=== PATIENT | female | born 1945 | race Caucasian/White ===

== ENCOUNTER 2022-03-01 15:06 | Emergency (ER) | payer MEDICARE ==
[~2022-03-01] VITALS: Ht 157.5 cm; Wt 91.2 kg
--- NOTE | 2022-03-01 15:36 | NUR ---
NICK SENT BY PMD HERE FOR PSYCH ISSUE. PT'S BEEN SCREAMING IN WR & BEDSIDE. -SI/HI.
[2022-03-01] MEDS ORDERED: OLANZAPINE 10 MG VIAL IM ONE (16:01)
--- NOTE | 2022-03-01 16:01 | NUR ---
URINE COLLECTED AND SENT
[2022-03-01] MEDS ORDERED: VENL75CA62 PO (16:04)
[2022-03-01] MEDS ORDERED: BUPR-319 PO (16:04)
[2022-03-01] MEDS: OLANZAPINE 10 MG VIAL IM ONE ×2 (16:16→16:17)
[2022-03-01 16:17] LABS: BASOPHILS # (AUTO) 0.1 K/uL (0.0-0.2); BASOPHILS % (AUTO) 0.6 % (0.0-2.0); EOSINOPHILS % (AUTO) 2.5 % (0.0-6.0); HEMATOCRIT 45 % (33-45); HEMOGLOBIN 14.7 g/dL (11.5-14.8); LYMPHOCYTES # (AUTO) 1.2 K/uL (0.8-4.8); LYMPHOCYTES % (AUTO) 13.9 % (20.0-44.0); MEAN CORPUSCULAR HGB CONC 33 g/dl (31.0-36.0); MEAN CORPUSCULAR VOLUME 88 fL (82-100); MONOCYTES # (AUTO) 0.8 K/uL (0.1-1.30); MONOCYTES % (AUTO) 9.4 % (2.0-12.0); NEUTROPHILS # (AUTO) 6.2 K/uL (1.8-8.9); NEUTROPHILS % (AUTO) 73.6 % (43.0-81.0); PLATELET COUNT (AUTO) 181 K/uL (150-450); RED BLOOD CELL COUNT(AUTO) 5.04 MIL/uL (4.0-5.2); WHITE BLOOD COUNT (AUTO) 8.4 K/uL (4.3-11.0)
[2022-03-01 16:32] LABS: BILIRUBIN,URINE NEGATIVE (NEGATIVE); COLOR,URINE YELLOW (YELLOW); LEUKOCYTE ESTERASE ,URINE NEGATIVE (NEGATIVE); NITRITE, URINE NEGATIVE (NEGATIVE); PH,URINE 6.5 (5.0-8.0); PROTEIN,URINE NEGATIVE (NEGATIVE); UGLUCOSE NEGATIVE (NEGATIVE); UROBILINOGEN,URINE 0.2 EU/dL (0.2)
--- NOTE | 2022-03-01 17:36 | NUR ---
CALLED [facility]. WAS NOTIFIED OF PT STATUS ETA 1899
[2022-03-01 17:55] LABS: ALANINE AMINOTRANSFERASE 38 U/L (12-78); ALBUMIN 4.1 g/dL (3.4-5.0); ALCOHOL, BLOOD < 3 mg/dL (0-0); ALKALINE PHOSPHATASE 151 U/L (46-116); ASPARTATE AMINOTRANSFERASE 13 U/L (15-37); BILIRUBIN,DIRECT 0.1 mg/dL (0.0-0.2); BILIRUBIN,TOTAL 0.3 mg/dL (0.2-1.0); CALCIUM, SERUM 9.5 mg/dL (8.5-10.1); CARBON DIOXIDE 25 mmol/L (21-32); CHLORIDE 102 mmol/L (98-107); GLUCOSE 106 mg/dL (74-106); POTASSIUM 3.9 mmol/L (3.5-5.1); SODIUM SERUM 139 mmol/L (136-145); TOTAL PROTEIN, SERUM 7.2 g/dL (6.4-8.2); UREA NITROGEN, BLOOD 14 mg/dL (7-18)
[2022-03-01] MEDS ORDERED: diphenhydrAMINE HCL 50 MG/ML VIAL ONE (18:18)
[2022-03-01] MEDS ORDERED: HALOPERIDOL LACTATE INJ 5 MG/ML VIAL ONE (18:18)
[2022-03-01] MEDS ORDERED: LORAZEPAM INJ 2 MG/ML VIAL ONE (18:19)
[2022-03-01] MEDS: LORAZEPAM INJ 2 MG/ML VIAL IM ONE (18:22)
[2022-03-01] MEDS: diphenhydrAMINE HCL 50 MG/ML VIAL IM ONE (18:24)
[2022-03-01] MEDS: HALOPERIDOL LACTATE INJ 5 MG/ML VIAL IM ONE (18:24)
--- NOTE | 2022-03-01 18:52 | NUR ---
ROOM 218-A AFTER PT HAS BEEN EVALUATED BY PSYCH CLINICIAN
--- NOTE | 2022-03-01 19:37 | NUR ---
PT RETURNED TO ER BED [address]
--- NOTE | 2022-03-01 20:13 | NUR ---
PT SLEEPING IN BED, IN NO ACUTE DISTRESS AT THIS TIME. VSS
--- NOTE | 2022-03-01 20:26 | NUR ---
ASSIGNED TO 325-1. AWAITING MED CLEARANCE
--- NOTE | 2022-03-01 20:47 | NUR ---
[facility] SWAB COLLECTED AND SENT TO LAB. PATIENT'S BELONGINGS LIST DONE.
[2022-03-01 21:11] LABS: ACETAMINOPHEN < 2 ug/ml (10-30)
--- NOTE | 2022-03-01 21:39 | NUR ---
Patient discharged to home in stable condition. Written and verbal after care instructions given. Patient verbalizes understanding of instruction. DC via W/C with . VSS
[2022-03-01 21:40] VITALS: BP 125/69
== END 2022-03-01 21:39 | disposition home or self-care (01) ==
LOC: ER 15:06 → MED 20:27 → UNDOADMIN 20:27 → ER 21:39
DX: R41.82 Altered mental status, unspecified (principal); Z20.822 Contact with and (suspected) exposure to COVID-19; Z79.899 Other long term (current) drug therapy
CPT/HCPCS: 36415; 70450; 80048; 80076; 80143; 80307; 80320; 81003; 85025; 87081; 87426; 93005; 96372 ×2; 99285; J1200; J1630; J2060; J3490; C9803; G0480